=== PATIENT | female | born 1980 | race Caucasian/White ===

== ENCOUNTER 2021-01-01 02:01 | Emergency (ER) | payer OTHER, SELFPAY ==
[2021-01-01 02:01] VITALS: BP 162/93; RESP 18; TEMP 36.2; O2SAT 98
[2021-01-01 02:44] VITALS: BP 162/93; PULSE 82; RESP 18; TEMP 36.2; O2SAT 98
[2021-01-01 03:11] LABS: D Dimer 0.25 mg/L (0.19-0.50); Partial Thromboplastin Time 26.1 SEC (23.90-30.70); Prothrombin Time 10.8 Seconds (9.50-12.10)
[2021-01-01 03:12] LABS: Alanine Aminotransferase 34 U/L (14-59); Albumin Level 3.6 g/dL (3.4-5.0); Alkaline Phosphatase 76 U/L (46-116); Anion Gap 9 mmol/L (8-16); Aspartate Amino Transferase 11 U/L (15-37); Bilirubin,Total 0.3 mg/dL (0.00-1.00); Blood Urea Nitrogen 14 mg/dL (7-18); Calcium 8.6 mg/dL (8.5-10.1); Carbon Dioxide 27 mmol/L (21-32); Chloride 103 mmol/L (98-108); Estimated CRCL calculation 66 ml/min; Estimated Glomerular Filt Rate > 60; Glucose 210 mg/dL (70-99); Osmolality Calculated 294 mOsm/kg (285-295); Potassium 3.6 mmol/L (3.5-5.1); Sodium 139 mmol/L (136-145)
--- NOTE | 2021-01-01 03:25 | ED.LOWEXIN ---
HPI - Extremity Injury (Lower) General Chief Complaint: Extremity Injury, Lower Stated Complaint: Leg Pain Time Seen by Provider: 01/01/21 02:38 Source: patient Mode of arrival: ambulatory Limitations: no limitations History of Present Illness HPI Narrative: She comes in with right knee pain and swelling since Wednesday. She has been unable to sleep secondary to pain. Swelling is primarily in posterior knee. She rates pain as severe, sharp, stabbing, not relieved by home medications. Pain has been ongoing without relief since Wednesday, a 9/10 on pain scale, but she refuses ketorolac and other medications for pain. SHe has had no known injury to the knee, no other associated symptoms. No swelling of the lower leg. Nothing has made this better or worse. Place: home Severity: severe Severity scale (1-10): 9 Relieving factors: nothing Exacerbating factors: movement Other symptoms: none Related Data Home Medications Medication Instructions Recorded Confirmed albuterol sulfate 2 puff INHALATION BID 01/01/21 01/01/21 lisinopril 12.5 mg PO BID 01/01/21 01/01/21 metformin 500 mg PO BID 01/01/21 01/01/21 montelukast 10 mg PO DAILY 01/01/21 01/01/21 Allergies Allergy/AdvReac Type Severity Reaction Status Date / Time Penicillins Allergy Intermediate Verified 11/01/17 09:38 Review of Systems Constitutional: Constitutional: Reports no additional constitutional complaints Eyes: Eyes: Reports no additional eye complaints ENT: Reports system reviewed and no additional complaints, except as documented Cardiovascular: Cardiovascular: Reports no additional cardiovascular complaints Respiratory: Respiratory: Reports no additional respiratory complaints Gastrointestinal: Gastrointestinal: Reports no additional gastrointestinal complaints Genitourinary: Genitourinary: Reports no additional female genitourinary complaints Musculoskeletal: Musculoskeletal: Reports no additional musculoskeletal complaints Integumentary/Breasts: Skin/Breast: Reports system reviewed and no additional complaints, except as docu Neurologic: Reports system reviewed and no additional complaints, except as documented Psychiatric: Psychiatric: Reports no additional psychiatric complaints Endocrine: Endocrine: Reports no additional endocrine complaints Hematologic/Lymphatic: Hematologic/Lymphatic: Reports no additional hematologic/lymphatic complaints Allergic/Immunologic: Allergic/Immunologic: Reports no additional allergic/immunologic complaints PMFSH Past Medical History Medical History (Updated 01/01/21 @ 03:39 by Carlos Gilbert MD) Asthma Diabetes mellitus Hypertension Surgical History Surgical History (Updated 01/01/21 @ 03:39 by Carlos Gilbert MD) No significant past surgical history Family History Family History (Updated 01/01/21 @ 03:40 by Carlos Gilbert MD) Mother Bipolar 1 disorder Social History Social History (Updated 01/01/21 @ 03:41 by Carlos Gilbert MD) Smoking status: Current every day smoker Tobacco type: cigarettes Alcohol intake: never Substance use: never Exam Const: General: no acute distress Orientation/consciousness: patient oriented x3 HENMT: Head: normal to inspection Ears: external ears normal and TM's normal bilaterally General nose exam: Normal external nose present Face and sinus: normal facial exam Mouth: Yes Normal oral and palatal mucosa present Throat: posterior oropharynx normal Eyes: Conjunctivae: conjunctivae normal Neck: Neck: normal visual inspection and no lymphadenopathy Chest: Chest palpation & inspection: normal inspection of the chest Resp: Effort & Inspection: normal respiratory effort Auscultation: clear to auscultation bilaterally Cardio: Rate: regular rate Rhythm: regular rhythm GI: GI Palp: Yes Soft to palpation (nontender) Back/Spine/Pelvis: Back: no CVA tenderness Skin: General skin exam: normal color Neuro: General: patient oriented x3 Ex
[2021-01-01 03:28] VITALS: BP 158/94; PULSE 75; RESP 18; O2SAT 94
--- NOTE | 2021-01-01 04:33 | PC.NURSE ---
pt discharged with discharge packet review at [id number]
== END 2021-01-01 03:30 | disposition home or self-care (01) ==
PROVIDERS: Emergency Provider Emergency Medicine; PCP Family Medicine
DX: M71.21 Synovial cyst of popliteal space [Baker], right knee (principal); E11.9 Type 2 diabetes mellitus without complications; I10 Essential (primary) hypertension
CPT/HCPCS: 36415; 80053; 85380; 85610; 85730; 99282; 99283

== ENCOUNTER 2022-03-04 13:12 | Outpatient (CLI) | payer OTHER, SELFPAY ==
[2022-03-08 17:35] LABS: H pylori Ag Stool Not Detected (Not Detected)
== END 2022-03-04 13:13 | disposition home or self-care (01) ==
LOC: CHSLAB 13:17
PROVIDERS: PCP Family Medicine
DX: A04.8 Other specified bacterial intestinal infections (principal)
CPT/HCPCS: 87338

== ENCOUNTER 2023-05-01 07:15 | Emergency (ER) | payer OTHER, SELFPAY ==
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
--- NOTE | ~2023-05-01 | CT_ITS ---
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 TECHNIQUE: Computed tomography (CT) of the head was performed without intravenous contrast. The dose- length product was 605.33 mGy-cm. Automated exposure control and iterative reconstruction technique w ere employed. COMPARISON: CT dated 06/20/2015 FINDINGS: Normal brain parenchymal volume for age. Normal arce-white differentiation. No acute intrac ranial hemorrhage, infarction, mass or mass effect. No ventriculomegaly or midline shift. Midline sagittal images demonstrate a normal corpus callosum, c raniovertebral junction and sella turcica. Basilar cisterns are patent. Paranasal sinuses are pneumatized. There is a small left mastoid effusion. Right mastoid air cells ar e pneumatized. No depressed skull fractures. IMPRESSION: 1. No acute intracranial abnormality. Reviewed, dictated and finalized at location A.
[2023-05-01 07:15] VITALS: BP 138/104; PULSE 115; RESP 20; TEMP 36.7; O2SAT 94
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
[2023-05-01 08:20] VITALS: BP 137/92; PULSE 92; RESP 20; O2SAT 97
[2023-05-01] MEDS: MORPHINE SULFATE (*CRX) 4 MG/ML INJ IM (08:25)
[2023-05-01 08:50] VITALS: BP 133/88; PULSE 90; RESP 16; O2SAT 96
[2023-05-01 08:53] VITALS: BP 133/88; PULSE 82; RESP 16; O2SAT 94
== END 2023-05-01 08:56 | disposition home or self-care (01) ==
PROVIDERS: Emergency Provider Emergency Medicine; PCP Family Medicine
DX: S63.502A Unspecified sprain of left wrist, initial encounter (principal); H92.02 Otalgia, left ear; I10 Essential (primary) hypertension; E11.9 Type 2 diabetes mellitus without complications; F17.210 Nicotine dependence, cigarettes, uncomplicated; Z79.84 Long term (current) use of oral hypoglycemic drugs; Z79.899 Other long term (current) drug therapy; Y04.2XXA Assault by strike against or bumped into by another person, initial encounter
CPT/HCPCS: 70450; 73090; 73110; 96372; 99284; J2270

== ENCOUNTER 2023-08-23 20:44 | Emergency (ER) | payer BC, SELFPAY ==
--- NOTE | ~2023-08-23 | CT_ITS ---
EXAMINATION: CT abdomen pelvis wo con DATE: 08/23/2023 22:24 INDICATION: Right flank pain TECHNIQUE: Computed tomography (CT) of the abdomen and pelvis was performed without intravenous contr ast. The dose-length product (DLP) was 577.59 mGy-cm. Automated exposure control and iterative recons truction technique were employed. COMPARISON: None FINDINGS: Minimal dependent atelectasis is present in the lung bases. The heart size is normal. The l iver is diffusely low in attenuation when compared with the spleen, consistent with hepatic steatosis . The spleen, pancreas, and adrenal glands are normal. The gallbladder is contracted. The kidneys are unremarkable. No stones are identified in the kidneys, ureters, or bladder. No hydronephrosis or hyd roureter. There are phleboliths of the pelvis. No pathologically enlarged abdominal or pelvic lymph n odes are identified. No free intraperitoneal gas or evidence of bowel obstruction. The appendix is no rmal. There is mild lumbar spondylosis. IMPRESSION: 1. No CT correlate for the patient's symptoms. 2. Diffuse hepatic steatosis. Reviewed, dictated and finalized at location F. R BAG INSPECTOR
[2023-08-23 20:44] VITALS: BP 156/98; PULSE 80; RESP 18; TEMP 36.3; O2SAT 97
--- NOTE | 2023-08-23 20:52 | ED.ABDPAIN ---
HPI - Abdominal Pain General Chief Complaint: Abdominal Pain Stated Complaint: radiating back pain Time Seen by Provider: 08/23/23 20:51 Source: patient Mode of arrival: ambulatory Limitations: no limitations History of Present Illness HPI narrative: 43-year-old female, smoker with hypertension, prediabetes, kidney stones, asthma presents to the ER with a one-week history of -- right flank pain. No dysuria or hematuria. No nausea/ vomiting. No fever. Patient has had an ultrasound 1 year ago which was negative for gallstones. MD elicited complaint: abdominal pain Pertinent past history: kidney stones Onset (ago): day(s) ( Seven days) Pain Consistency: constant Location: R flank Severity: mild Quality: aching Radiation: R flank Migration to: no migration Exacerbating factors: nothing Relieving factors: nothing Associated symptoms: denies other symptoms Related Data Home Medications Medication Instructions Recorded Confirmed albuterol sulfate 90 mcg/actuation 2 puff inhalation BID 01/01/21 08/23/23 aerosol inhaler lisinopril 10 mg tablet 12.5 mg PO BID 01/01/21 08/23/23 metformin 500 mg tablet 500 mg PO BID 01/01/21 08/23/23 montelukast 10 mg tablet 10 mg PO DAILY 01/01/21 08/23/23 budesonide-formoterol HFA 160 1 puff inhalation BID 08/23/23 08/23/23 mcg-4.5 mcg/actuation aerosol inhaler Allergies Allergy/AdvReac Type Severity Reaction Status Date / Time Penicillins Allergy Intermediate Rash Verified 05/06/23 15:04 Review of Systems Review of Systems: All systems reviewed & are unremarkable except as noted in HPI and below Constitutional: Constitutional: Reports as per HPI and Reports no additional constitutional complaints Eyes: Eyes: Reports as per HPI and Reports no additional eye complaints ENT: Reports system reviewed and no additional complaints, except as documented and Reports as per HPI Cardiovascular: Cardiovascular: Reports as per HPI and Reports no additional cardiovascular complaints Respiratory: Respiratory: Reports as per HPI and Reports no additional respiratory complaints Gastrointestinal: Gastrointestinal: Reports as per HPI and Reports no additional gastrointestinal complaints Genitourinary: Genitourinary: Reports no additional female genitourinary complaints, Reports as per HPI and Reports flank pain Musculoskeletal: Musculoskeletal: Reports no additional musculoskeletal complaints and Reports as per HPI Integumentary/Breasts: Skin/Breast: Reports system reviewed and no additional complaints, except as docu Neurologic: Reports system reviewed and no additional complaints, except as documented and Reports as per HPI Psychiatric: Psychiatric: Reports no additional psychiatric complaints and Reports as per HPI Endocrine: Endocrine: Reports no additional endocrine complaints and Reports as per HPI Hematologic/Lymphatic: Hematologic/Lymphatic: Reports no additional hematologic/lymphatic complaints and Reports as per HPI Allergic/Immunologic: Allergic/Immunologic: Reports no additional allergic/immunologic complaints and Reports as per HPI PMFSH Past Medical History Medical History Asthma Diabetes mellitus Hypertension Surgical History Surgical History No significant past surgical history Family History Family History Mother Bipolar 1 disorder Social History Social History Smoking status: Current every day smoker Tobacco type: cigarettes Alcohol intake: never Substance use: never Exam Const: General: healthy appearing and no acute distress Nutritional Appearance: well nourished Orientation/consciousness: patient oriented x3 Limitations: no limitations HENMT: Head: normal to inspection Ears: external ears normal Face/Nose/Sinu
[2023-08-23 21:11] LABS: Basophils Absolute Auto 0.08 K/mm3 (0.00-0.10); Basophils Percent Auto 0.7 % (0.0-1.0); Eosinophils Absolute Auto 0.25 K/mm3 (0.02-0.50); Eosinophils Percent Auto 2.3 % (1.0-6.0); Hematocrit 39.6 % (35.0-49.0); Hemoglobin 13.8 g/dL (12.0-15.0); Immature Granulocyte Absolute 0.07 K/mm3 (0.00-0.00); Immature Granulocyte Percent A 0.6 % (0.0-0.0); Lymphocytes Percent Auto 40.1 % (18.0-42.0); Mean Corpuscular HGB Conc 34.8 g/dL (32.0-36.0); Mean Corpuscular Hemoglobin 31.5 pg (27.0-31.0); Mean Corpuscular Volume 90.4 fL (78.0-102.0); Monocytes Absolute Auto 0.66 K/mm3 (0.10-0.90); Neutrophils Absolute Auto 5.5 K/mm3 (1.7-7.2); Neutrophils Percent Auto 50.3 % (50.0-70.0); Platelet Count Result 217 K/mm3 (150-420); Red Blood Count 4.38 M/mm3 (4.20-5.40); Red Cell Distribution Width 12.1 % (11.6-14.4)
[2023-08-23 21:12] LABS: Appearance Urine Slightly Cloudy (Clear); Bilirubin Urine Negative (Negative); Blood Urine Trace-Intact (Negative); Color Urine Light Yellow (Yellow); Glucose Urine UA 2+ (Negative); Ketones Urine Negative (Negative); Leukocyte Esterase Ur Trace LEU/UL (Negative); Nitrate Urine Positive (Negative); Protein Urine Trace (Negative); Urobilinogen Urine 0.2 mg/dL (0.2-1.0)
[2023-08-23 21:18] LABS: Add Urine Microscopic? YES; Bacteria Urine 3+ /hpf; Squamous Epithelial Cell Urine Rare /hpf (Few)
[2023-08-23] MEDS: ONDANSETRON INJ 4 MG/2 ML VIAL IV PUSH (21:18)
[2023-08-23 21:28] LABS: Alanine Aminotransferase 29 U/L (14-59); Albumin Level 3.7 g/dL (3.4-5.0); Alkaline Phosphatase 72 U/L (46-116); Anion Gap 11 mmol/L (8-16); Aspartate Amino Transferase 12 U/L (15-37); Bilirubin,Total 0.4 mg/dL (0.00-1.00); Blood Urea Nitrogen 12 mg/dL (7-18); Calcium 8.2 mg/dL (8.5-10.1); Carbon Dioxide 26 mmol/L (21-32); Chloride 100 mmol/L (98-108); Estimated CRCL calculation 73 ml/min; Estimated Glomerular Filt Rate > 60; Glucose 221 mg/dL (70-99); Lipase 47 U/L (16-77); Osmolality Calculated 290 mOsm/kg (285-295); Potassium 3.6 mmol/L (3.5-5.1); Sodium 137 mmol/L (136-145); Total Protein 6.8 g/dL (6.4-8.2)
[2023-08-23 21:35] LABS: Lactic Acid Reflex 1.1 mmol/L (0.4-2.0)
[2023-08-23] MEDS: KETOROLAC 30 MG/ML VIAL (*BKC) IV PUSH (21:51)
[2023-08-23] MEDS: LACTATED RINGERS 500 ML 999 ML IV CONT (21:51)
[2023-08-23 21:55] LABS: Pregnancy On Board Control Positive; Urine Pregnancy Test Negative
[2023-08-23] MEDS: CIPROFLOXACIN 250 MG TABLET PO (22:46)
[2023-08-23 22:52] VITALS: BP 139/84; PULSE 82; RESP 20; TEMP 36.7; O2SAT 98
--- NOTE | 2023-08-28 15:38 | PC.NURSE ---
FINAL URINE CULTURE REPORT; KLEBSIELLA PNEUMONIAE; PATIENT DISCHARGED HOME ON CIPROFLOXACIN, CULTURE IS SUSCEPTIBLE. NO FURTHER ACTION OR TREATMENT NEEDED.
--- NOTE | 2023-08-30 14:05 | PC.NURSE ---
FINAL URINE CULTURE RESULT: GREATER THAN 100,000 CFU/ML OF KEBSIELLA PNEUMONIAE. PER C&S AND DR NELSON, NO FURTHER ACTION NEEDED.
== END 2023-08-23 22:58 | disposition home or self-care (01) ==
PROVIDERS: Emergency Provider Internal Medicine Critical Care Medicine; PCP Family Medicine
DX: E11.65 Type 2 diabetes mellitus with hyperglycemia (principal); N30.00 Acute cystitis without hematuria; I10 Essential (primary) hypertension; F17.210 Nicotine dependence, cigarettes, uncomplicated; Z79.899 Other long term (current) drug therapy; Z79.84 Long term (current) use of oral hypoglycemic drugs
CPT/HCPCS: 36415; 74176; 80053; 81001; 81025; 83605; 83690; 85025; 87077; 87086; 87088; 87186; 96374; 96375; 99284; A9270; J1885; J2405; J7120

== ENCOUNTER 2023-10-19 17:04 | Outpatient (RCR) | payer BC, SELFPAY ==
--- NOTE | 2023-10-19 17:31 | OPREHPOC ---
Outpatient Therapy Plan of Care This is a Multidisciplinary Plan of Care that may contain components documented by all disciplines (PT, OT, and ST.) PT Problem 1 PT Problem #1 Knowledge Deficit PT Goal 1 Goal 1. independent and compliant with HEP Target Visit 4 PT Problem 2 PT Problem #2 Pain PT Goal 1 Goal 1. decrease pain at worst to 3/10 in the lower back to return to daily activities and work Target Visit 8 PT Problem 3 PT Problem #3 Impaired Strength PT Goal 1 Goal 1. improve bilateral hip strength to 4+/5 or better overall 2. improve core strength to 3+/5 or better Target Visit 8 PT Problem 4 PT Problem #4 Impaired Range of Motion PT Goal 1 Goal 1. improve active lumbar flexion to the ankles 2. improve active lumbar extension to 20 degrees 3. improve active bilateral lumbar side bending to 40 degrees all pain free active rom of the lumbar spine Target Visit 8 PT Problem 5 PT Problem #5 Impaired Functional Mobil PT Goal 1 Goal 1. improve bilateral hamstrings flexibility to 20 degrees or less per the 90/90 test 2. oswestry to display 20% or less functional deficits 3. patient to tolerate full week of working full days without needs days off due to pain 4. patient to ambulate for 30 minutes without rest to return to health goals/program Target Visit 8
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
--- NOTE | 2023-10-26 17:30 | PCPTNOTE ---
pt no show. attempted contact with no answer.
--- NOTE | 2024-04-25 10:59 | PCPTNOTE ---
Pt did not return after her eval on 10/19/23. She is discharged. -Meenu Chapman, PT
== END 2023-10-19 20:00 | disposition home or self-care (01) ==
LOC: CHSPT 17:04
PROVIDERS: PCP Family Medicine; Visit Provider Family Medicine
DX: M47.817 Spondylosis without myelopathy or radiculopathy, lumbosacral region (principal)
CPT/HCPCS: 97014; 97110; 97161; G0283

== ENCOUNTER 2024-04-13 12:05 | Outpatient (CLI) | payer BC, SELFPAY ==
[2024-04-14 09:28] LABS: Alanine Aminotransferase 31 U/L (6-35); Albumin Level 4.1 g/dL (3.5-5.1); Alkaline Phosphatase 69 U/L (38-126); Anion Gap 13 mmol/L (4-12); Aspartate Amino Transferase 25 U/L (14-36); Bilirubin,Total 0.4 mg/dL (0.2-1.3); Blood Urea Nitrogen 16 mg/dL (7-17); Calcium 9.4 mg/dL (8.4-10.2); Carbon Dioxide 22 mmol/L (22-30); Chloride 103 mmol/L (98-107); Cholesterol 176 mg/dL (0-200); Estimated Glomerular Filt Rate > 60; Glucose 209 mg/dL (65-110); HDL Direct 35 mg/dL; LDL Cholesterol Calculated 58 mg/dL (<130); Osmolality Calculated 293 mOsm/kg (285-295); Potassium 3.9 mmol/L (3.4-5.0); Sodium 138 mmol/L (137-145); Triglycerides 415 mg/dL (<150)
[2024-04-14 12:35] LABS: Hemoglobin A1C 6.9 % (<5.7)
== END 2024-04-13 12:06 | disposition home or self-care (01) ==
LOC: CHSLAB 12:12
PROVIDERS: PCP Family Medicine
DX: E11.65 Type 2 diabetes mellitus with hyperglycemia (principal)
CPT/HCPCS: 36415; 80053; 80061; 83036

== ENCOUNTER 2024-09-17 14:43 | Emergency (ER) | payer BC, SELFPAY ==
[2024-09-17] VITALS (11 sets, daily range): BP systolic 101–113; BP diastolic 63–70; PULSE 81–95; RESP 15–22; TEMP 36.4–36.9; O2SAT 94–100
--- NOTE | ~2024-09-17 | XR_ITS ---
CHEST RADIOGRAPH CLINICAL HISTORY: dyspnea, chest pain x1 week . COMPARISON: None available TECHNIQUE: Single portable view of the chest. FINDINGS The cardiomediastinal silhouette is unremarkable. The lungs are clear. Visualized osseous structures and soft tissues are unremarkable. IMPRESSION: No focal infiltrate or effusion. Reviewed, dictated and finalized at location A. [facility]
--- NOTE | 2024-09-17 14:44 | ECG_ITS ---
Test Date: 2024-09-17 14:49:07 Measurements Intervals [place] Rate: 89 P: 34 ID: [id number] QRS: 71 QRSD: 86 T: 28 QT: 325 QTc: 397 Interpretive Statements SINUS RHYTHM NONSPECIFIC ST-T WAVE ABNORMALITY- INFERIOR LEADS BASELINE ARTIFACT- I, II, AVR, AVL BORDERLINE ECG No previous ECG available for comparison Electronically Signed On 09-18-2024 06:29:00 HOTBED TRANSFER OPERATOR by Abhijit Pan D.O.
--- OUTSIDE RECORDS SUMMARY | 2024-09-17 14:46 | XMS_ITS ---
Author Organization Unknown Address [address] [place] [phone] Phone Care Team Providers Care Textile Engineer Name Role Phone YOANA CARLOS Attending Unavailable NO PCP Primary Unavailable Immunization Immunization Date Status Additional Notes Code Code System DTP 10/28/1979 Completed CVX DTP 12/03/1980 Completed CVX DTP 04/10/1981 Completed CVX DTP 06/11/1982 Completed CVX OPV 10/28/1979 Completed 02 CVX OPV 12/03/1980 Completed CVX OPV 12/11/1981 Completed CVX OPV 04/01/1983 Completed 02 CVX MMR 10/28/1979 Completed 03 CVX MMR 03/14/1993 Completed 03 CVX Td (adult), 2 Lf tetanus toxoid, preservative free, adsorbed 03/14/1993 Completed 09 CVX COVID-19, mRNA, LNP-S, PF, 1 00 mcg/0.5mL dose or 50 mcg/0.25mL dose 04/23/2021 Completed 207 CVX Results MS GASTRIC EMPTYING - Comple myriam: 07/27/2024 12:24 LOINC: EXAM DESCRIPTION: MS GASTRIC EMPTYING RADIOPHARMACEUTICAL: 1 mCi Tc-99m sulfur colloid incorporated into eggs p.o. REASON FOR STUDY: Abdominal bloating with nausea for 6 months. TECHNIQUE: After oral ingestion of the radiolabeled meal, sequential anterior and posterior abdominal images were obtained. COMPARISON: None FINDINGS: At 60 minutes, the residual activity is 93% (normal: 30-90%). At 120 minutes, the residual activity is 76% (normal: less than 60%). At 180 minutes, the residual activity is 35% (normal: less than 30%). At 240 minutes, the residual activity is 2% (normal: less than 10%). IMPRESSION: ? ? Normal gastric emptying. THIS IS AN ELECTRONICALLY VERIFIED FINAL REPORT 07/27/2024 3:59 PM - Electronically signed by Wilbert Alvarez M.D. LB: CARLYLE Report ID: [id number] Reading Location: [place] [address] Social History Type Status Start Date End Date Code Code Syst em Sex Female Hospital Discharge Instructions Should you have any questions prior to discharge, please contact a member of your healthcare team. If you have left the hospital and have any questions, please contact your primary care physician. Reason For Referral No Data Found Plan of Treatment NM Gastric Emptying (64484) 07/27/2024 Encounters Encounter Diagnosis Start Date Code Code Sys tem Abdominal distension, gaseous 07/27/2024 [id number] SNOMED-CT Personal Care Team Section Performer Name Performer Role Active Date Inactive Da te Imaging Narrative Notes
--- OUTSIDE RECORDS SUMMARY | 2024-09-17 14:46 | XMS_ITS | Data Portability ---
Author Organization [facility], [address] [place] [address] [place] ([place]) Address [address] [place] [address] Care Team Providers Care Sofa Back Upholsterer Name Role Phone TAMMY SHEPHERD Primary Care Provider JAN LEES Middle Card Tender Assessment Encounter Date Assessment Date Assessment LastModified by Organization Details LastModified Time 06/23/2024 06/23/2024 Ms. Oconnell is a 44-year-old female with a history of diabetes on Ozempic, asthma, hypertension, and GERD who presents with complaints of chronic intermittent right upper quadrant abdominal pain associated with foul-smelling burps, bloating and nausea vomiting. She was initially seen in 2021 and underwent an EGD and colonoscopy after which she had been lost to follow-up. EGD had shown grade a esophagitis, erosive gastritis and erosive duodenitis. Colonoscopy in 2021 had shown a few benign polyps and normal random biopsies. An ultrasound had shown no stones in the gallbladder. CT abdomen had shown diverticulosis with normal gallbladder and some splenic lesions. Reports a family history of aunt with colon cancer. It is likely that some of her symptoms are from being on Ozempic. SIBO is also a possibility. -Provided info on low FODMAP diet to help with bloating -Will order a gastric emptying study to rule out gastroparesis -Future option will be a trial of antibiotic like Augmentin for possible SIBO [email or web address] Not available 07/03/2024 11:42:00 Plan of Treatment Reminders Order Date Submit Date Provider Last Modified By Organization Details Last Modified Time Details Appointments None record ed. Lab None record ed. Referral None record ed. Procedures None record ed. Surgeries None record ed. Imaging None record ed. Medication Orders None record ed. Patient TargetsNo targets recorded. Patient InstructionsNo instructions recorded. Reason for Referral None Reported. Problems Name Problem SNOMED Code Status Onset Date Resolution Date Notes Provider Name and Address Organization Details Recorded Time Tenderness of right upper quadrant of abdomen 875080160 Active 2023 Daniella ramos [facility] 4 16:30:44 Right upper quadrant pain 566607271 Active 2023 Daniella ramos [facility] 4 16:31:01 Gastrointestin al symptom 066783134 Active 2023 Daniella ramos [facility] 4 16:31:26 Abdominal bloating 861494799 Active 2023 Alisia Vigil [facility] 4 16:31:44 Bilious vomiting 05476304 Active 2023 Jan Lees MD [address] [place] [address], [phone], [facility] 4 11:39:03 Burping 821621906 Active 2023 Jan Lees MD [address] [place] [address], [phone], [facility] 4 11:39:10 Small bowel bacterial overgrowth syndrome 197975863 Active 2024 Cyn Garrett [facility] 5 13:20:35 Problem Notes None recorded. Medical Equipment None Reported. Allergies Allergen ID Allergen Name Allergen Category Reaction Reaction Severity Criticality Documentation Date Start Date Code Code System Note Provider Name and Address Organization Details Recorded Time 7067618 grass pollen environme nt,medica tion other Not available Not available 06/01/2024 20234 UNK sneez ing Not Available Not Available Not Available 5401551 starch food,medi cation other Not available Not available 06/01/2024 79772 RxNorm sneez ing Not Available Not Available Not Available 900265 Product containin g penicilli n and antibioti c (product) medicatio n anaphylax is Not available Not available 09/06/20232021 39187 05 SNOMED Not Available Not Available Not Available 490021 Augmentin medicatio n nausea Not available Not available 09/06/20232021 77841 2 RxNorm Not Available Not Available Not Available Medications Name Sig Start Date Stop Date Status Note LastModified by Organization Details LastModified Time cyclobenzap rine 10 mg tablet TAKE 1 TABLET BY MOUTH 3 TIMES A DAY NEEDED FOR PAIN 06/23 completed Not Available Not Available Not Available atorvastati n 20 mg tablet Take 1 tablet every day by oral route. active Not Available Not Available No t Available albuterol sulfate 2.5 mg/3 mL (0.083 %) solution for nebulizatio n Inhale 3 mL 3 times a day by nebulizat ion route. active Not Available Not Available No t Available lisinopril 20 mg-hydrochl orothiazide 12.5 mg tablet 1 (ONE) TABLET DAILY FOR BLOOD PRESSURE active Not Available Not Available No t Available azithromyci n 250 mg tablet TAKE 2 TABLETS BY MOUTH TODAY, THEN TAKE 1 TABLET DAILY FOR 4 DAYS DIRECTED 06/23 completed Not Available Not Available Not Available clarithromy mak 500 mg tablet TAKE 1 TABLET BY MOUTH TWICE A DAY 06/23 completed Not Available Not Available Not Available prednisone 20 mg tablet TAKE 2 TABLETS BY MOUTH EVERY DAY FOR DIFFICULT Y BREATHING active Not Available Not Available No t Available metronidazo le 500 mg tablet Take 1 tablet 3 times a day by oral route as directed for 7 days. 2024 active Not Available Not Available Not Avai lable ciprofloxac in 250 mg tablet TAKE 1 TABLET BY MOUTH TWICE A DAY 06/23 completed Not Available Not Available Not Available omeprazole 40 mg capsule,del ayed release Take 1 capsule twice a day by oral route. active Not Available Not Available No t Available ondansetron 8 mg disintegrat ing tablet 1 (ONE) TABLET EVERY 8 HOURS NEEDED FOR VOMITING 06/23 completed Not Available Not Available Not Available ketorolac 10 mg tablet TAKE 1 TABLET BY MOUTH THREE TIMES A DAY 06/23 completed Not Available Not Available Not Available baclofen 10 mg tablet TAKE 1 TABLET BY MOUTH THREE TIMES A DAY 06/23 completed Not Available Not Available Not Available Cipro 500 mg tablet Take 1 tablet twice a day by oral route as directed for 7 days. 2024 active Not Available Not Available Not Avai lable omeprazole 20 mg capsule,del ayed release TAKE 1 CAPSULE BY MOUTH 2 TIMES DAILY 06/23 completed Not Available Not Available Not Available montelukast 10 mg tablet Take 1 tablet every day by oral route. active Not Available Not Available No t Available ergocalcife rol (vitamin D2) 1,250 mcg (50,000 unit) capsule TAKE 1 CAPSULE BY MOUTH ONE TIME PER WEEK 06/23 completed Not Available Not Available Not Available albuterol sulfate HFA 90 mcg/actuati on aerosol inhaler INHALE 1-2 PUFFS BY MOUTH FOUR TIMES DAILY, NEEDED ASTHMA EXACERBAT ION active Not Available Not Available No t Available metformin ER 500 mg tablet,exte nded release 24 hr Take 2 tablets every day by oral route. active Not Available Not Available No t Available BD Ultra-Fine Mini Pen Needle 31 gauge x /16 USE WEEKLY WITH OZEMPIC active Not Available Not Available No t Available lisinopril- hydrochloro thiazide 06/23 completed Not Available Not Available Not Available Symbicort 160 mcg-4.5 mcg/actuati on HFA aerosol inhaler Inhale 2 puffs twice a day by inhalatio n route. active Not Available Not Available No t Available Trulicity 0.75 mg/0.5 mL subcutaneou s pen injector INJECT 0.5ML (1 PEN) UNDER THE SKIN WEEKLY 06/23 completed Not Available Not Available Not Available albuterol sulfate 90 mcg/actuati on breath activated powder inhaler Inhale 2 puffs every 4 hours by inhalatio n route. active Not Available Not Available No t Available FreeStyle John 2 Sensor kit 1 (ONE) KIT EVERY 14 DAYS active Not Available Not Available No t Available Ozempic 1 mg/dose (4 mg/3 mL) subcutaneou s pen injector Inject by subcutane ous route. active Not Available Not Available No t Available FreeStyle Jonh 3 Sensor device APPLY 1 SENSOR EVERY 14 DAYS active Not Available Not Available No t Available Ozempic 0.25 mg or 0.5 mg (2 mg/3 mL) subcutaneou s pen injector INJECT 0.25 MG WEEKLY 06/23 completed Not Available Not Available Not Available Vitals Date Recorded Body height Body mass index (BMI) Body weight Oxygen saturation Oxygen saturation in Arterial blood by Pulse oximetry Heart rate Systolic blood pressure Diastolic blood pressure Provider Name and Address Organization Details Last Updated DateTime 4 152.4 cm 32.8 kg/m2 64293.2 4 g 94 % 94 % 81 /min 112 mm[Hg] 78 mm[Hg] Cyn Garrett [facility] 4 11:34:43 Social History Question Answer Notes LastModified by Organizat ion Details LastModified Time Tobacco Smoking Status Former Smoker Cyn Garrett [facility] 06/23/2024 11:38:36 What Is Your Level Of Alcohol Consumption? None [email or web address] Information not available 06/23/2024 Sex: Unknown Functional Status None recorded. Mental Status None recorded. Family History Relationship Description Onset Age of this Age Resolved Age Notes LastModified by Organization Details LastModified Time Mother Malignant tumor of breast [email or web address] Not available 06/23 11:39:45 Maternal Aunt Malignant tumor of colon [email or web address] Not available 06/23 11:39:56 Medical History Condition Response Autoimmune disease N Bleeding Disorder N Anemia N Colon Cancer N Colon Polyps N Chronic Ulcerative Colitis N Cancer N Crohn's Disease N Gynecological HistoryNo gynecological history recorded. Obstetrics History GPAL:G 0 P 0 0 0 0 Past Encounters Encounter ID Performer Location Encounter Start Date Encounter Closed Date Diagnosis/Indication Diagnosis SNOMED-CT Code Diagnosis ICD10 Code Diagnosis Note [id number] Jan Lees MD [address] [facility] ([place]) [address] [facility] [place] [address] 06/23/2024 11:21:50 06/23/2024 13:28:31 Right upper quadrant pain 881092442 R10.11 Bilious vomiting 6618426 2 R11.14 Burping 473952572 R14.2 Health Concerns Section Related Observation LastModified by Organization Detai ls LastModified Time None Recorded Concern Status LastModified by Organization Details LastModified Time None Recorded Advance Directives Directive None Recorded Payers Encounter Date Sequence Insurance Name Policy Number Policy Chavez Covered Member ID Chavez Member ID Guarantor Name 06/23/2024 1 [place] [id number] Yoselin Oconnell [id number] Yoselin Oconnell Notes Date Note Type Note Provider Name and Address Organization Details Recorded Time 06/23/2024 text/html Ms. Oconnell presents with complaints of right upper quadrant abdominal pain associated with bloating and nausea, vomiting. She has foul-smelling burps. Denies any heartburn. She is on omeprazole. She is also on Ozempic. She reports 1 bowel movement per day which is occasionally loose. Denies any blood in the stools or black stools. Jan Lees MD [address] [place] [address], [phone], [facility] 07/03/2024 11:42:22 OBGyn Episode No OBEpisode recorded.
--- OUTSIDE RECORDS SUMMARY | 2024-09-17 14:46 | XMS_ITS | Encounter Summary ---
Author Organization [facility] Address [address] [place] [address] Care Team Providers Care Ground Crewman Aircraft Support Name Role Phone Chris Jiang MD Primary Care Provider [phone] Encounter Details Date Type Department Care Team (Late st Contact Info) Description 01/14/2019 Abstract SFL CONVERSION [address] [place] [address] , Generic Conversion, Social History Tobacco Use Types Packs/Day Years Used Date Smoking Tobacco: Never Assessed Comments Unknown Sex and Gender Information Value Date Recorded Sex Assigned at Not on file Legal Sex Female 7:59 AM CDT Gender Identity Not on file Sexual Orientation Not on file documented as of this encounter Plan of Treatment Not on file documented as of this encounter Visit Diagnoses Not on filedocumented in this encounter Care Teams Ground Crewman Aircraft Support Relationship Specialty Start Date End Date Chris Jiang MD [address] [place] [phone] PCP - General FAMILY PRACTICE 08/14/20 documented as of this encounter
--- OUTSIDE RECORDS SUMMARY | 2024-09-17 14:46 | XMS_ITS | Clinical Summary ---
Author Organization [facility] Address [address] [place] [address] Care Team Providers Care Demonstrator Sales Name Role Phone Chris Jiang MD Primary Care Provider Allergies Active Allergy Reactions Criticality Noted Date Comments Amoxicillin-Pot Clavulanate Nausea Only 021 Grass Sneezing 08/15/2020 Penicillins Throat swelling 06/25/2016 Propylene Glycol Sneezing 01/03/2021 Medications albuterol (2.5 MG/3ML) 0.083% nebulizer solution Inhale 1 mL into the lungs every 4 (four) hours as needed. 05/20/2016 Active albuterol sulfate HFA 108 (90 Base) MCG/ACT inhaler Inhale 1 puff into the lungs as needed. 08/14/2020 Active lisinopril-hydr oCHLOROthiazide 20-12.5 MG tablet Take 1 tablet by mouth 2 (two) times a day. 08/14/2020 Active montelukast 10 MG tablet Take 1 tablet (10 mg total) by mouth daily. 08/14/2020 Active acetaminophen 500 MG tablet Take 1 tablet (500 mg total) by mouth every 6 (six) hours as needed for Pain. Active atorvastatin (LIPITOR) 20 MG tablet Take 1 tablet (20 mg total) by mouth daily. 02/29/2024 Active budesonide-form oterol (SYMBICORT) 160-4.5 MCG/ACT inhaler Inhale 1 puff into the lungs 2 (two) times daily. 07/28/2023 Active omeprazole (PRILOSEC) 40 MG capsule Take 1 capsule (40 mg total) by mouth 2 (two) times daily. 04/12/2024 Active metFORMIN ER (GLUCOPHAGE-XR) 500 MG 24 hr tablet Take 2 tablets (1,000 mg total) by mouth 2 (two) times daily. 03/01/2024 Active OZEMPIC 1 mg/dose injection (PEN) Inject 1 mg into the skin once a week. 05/08/2024 Active Active Problems Problem Noted Date Diagnosed Date Trigger ring finger of right hand 04/24/2024 Abdominal pain 11/05/2021 Pseudogout of right knee 01/09/2021 Effusion of knee joint right 01/09/2021 Closed nondisplaced fracture of distal phalanx of left great toe with routine healing, subsequent encounter 08/15/2020 Family History Medical History Relation Comments No Known Problems Brother Hypertension Father No Known Problems Maternal Grandfather Diabetes Maternal Grandmother No Known Problems Mother No Known Problems Paternal Grandfather Diabetes Paternal Grandmother No Known Problems Sister Relation Status Comments Brother Alive Father Maternal Grandfather Maternal Grandmother Mother Alive Paternal Grandfather Paternal Grandmother Sister Alive Social History Tobacco Use Types Packs/Day Years Used Date Smoking Tobacco: Every Day Cigarettes 0.3 26 Smokeless Tobacco: Never Tobacco Cessation:Ready to Q uit: No; Counseling Given: No Alcohol Use Standard Drinks/Week Comments Never 0 (1 standard drink = 0.6 oz pur e alcohol) AUDIT-C Answer Date Recorded Q1: How often do you have a drink containing alc ohol? Never 09/05/2020 Average Number of Drinks Not on file 021 Frequency of Binge Drinking Not on file 08/10 Comments No Sex and Gender Information Value Date Recorded Sex Assigned at Not on file Legal Sex Female 7:59 AM CDT Gender Identity Not on file Sexual Orientation Not on file Last Filed Vital Signs Vital Sign Reading Time Taken Comments Blood Pressure 106/80 05/31/2024 10:34 AM CDT Pulse 86 05/31/2024 10:34 AM CDT Temperature 36.2 C (97.2 F) 04/11/2024 11:34 AM CDT Respiratory Rate 14 05/31/2024 10:34 AM CDT Oxygen Saturation 98% 05/31/2024 10:34 AM CDT Inhaled Oxygen Concentration - - Weight 75.8 kg (167 lb) 05/31/2024 10:34 AM CDT Height 149.9 cm (4' 11 ) 05/31/2024 10:34 AM CDT Body Mass Index 33.73 05/31/2024 10:34 AM CDT Plan of Treatment Health Maintenance Due Date Last Done Comments Cervical Cancer Screening Pap Smear (Age 30 to 64) Every 3 Years 1978 Colorectal Cancer Screening Colonoscopy (10 Years) 1978 Annual Physical 1981 Pneumococcal Vaccine: Pediatrics (0 to 5 Years) and At-Risk Patients (6 to 64 Years) (1 of 2 - PCV) 01/14/1984 PHQ-2 (Physician [employer]) 1990 Hepatitis C 01/14/1996 DTaP, Tdap and Td Vaccines (1 - Tdap) 1997 06/11/1982, 04/10/1981, 12/03/1980, Additional history exists Hepatitis B Vaccines (1 of 3 - 19+ 3-dose series) 1997 Cervical Cancer Screening Pap with HPV Testing (Age 30 to 64) Every 5 Years 01/14/2008 Cervical Cancer Screening with HPV 01/14/2008 Mammogram Screening 2018 COVID-19 Vaccine ( season) 2024 Influenza Adult (#1) 2024 PHQ-2 (Physician [employer]) 08/09/2024 Meningococcal B Vaccine Aged Out No l onger eligible based on patient's age to complete this topic Meningococcal Vaccine Aged Out No kenneth leatha eligible based on patient's age to complete this topic RSV Immunizations Under 20 Months Aged Out No longer eligible based on patient's age to complete this topic Goals Goal Patient Goal Type Associated Problems Recent Progress Patient-Stated? Author Safety Patient/family will have appropriate support at home upon discharge General No Corrine Bradshaw, WOOD BOATBUILDER Insurance Advance Directives * Full Code (Latest Code Status on File) Date Activated Date Inactivated Comments 11/05/2021 1:02 PM 11/06/2021 5:13 PM Care Teams Demonstrator Sales Relationship Specialty Start Date End Date Chris Jiang MD [address] [facility] [place] [id number] PCP - General FAMILY PRACTICE 08/14/20
--- NOTE | 2024-09-17 14:56 | ED_ITS ---
HPI - General Adult General Chief complaint: Shortness of Breath/Dyspnea Stated complaint: chest pain, shortness of breath History of Present Illness HPI narrative: Yoselin is a 44F with a PMH of asthma, DMII, and HTN that presented to the ED with chest pain. She started having chest pain and tightness as well as wheezing and was started on steroids 6 days ago. Despite this she is having worsening chest pain and dyspnea. She took an albuterol breathing treatment just before coming to the ED. She has had lightheadedness, nausea but no vomiting or syncope. CP is not worse with exertion and does not radiate. Related Data Home Medications ?Medication ?Instructions ?Recorded ?Confirmed ?Last Taken ?Type albuterol sulfate 90 mcg/actuation 2 puff inhalation BID 01/01/21 08/23/23 Unknown History aerosol inhaler lisinopril 10 mg tablet 12.5 mg PO BID 01/01/21 08/23/23 Unknown History metformin 500 mg tablet 500 mg PO BID 01/01/21 08/23/23 Unknown History montelukast 10 mg tablet 10 mg PO DAILY 01/01/21 08/23/23 Unknown History budesonide-formoterol HFA 160 1 puff inhalation BID 08/23/23 08/23/23 Unknown History mcg-4.5 mcg/actuation aerosol inhaler Allergies Allergy/AdvReac Type Severity Reaction Status Date / Time Penicillins Allergy Intermediate Rash Verified 09/17/24 14:54 Review of Systems 2 Review of Systems: All systems reviewed & are unremarkable except as noted in HPI and below PMFSH Past Medical History Medical History Asthma Hypertension Diabetes mellitus Surgical History Surgical History No significant past surgical history Family History Family History Mother Bipolar 1 disorder Social History Social History Smoking status: Current every day smoker Tobacco type: cigarettes Alcohol intake: never Substance use: never Exam 2 Const: General: cooperative, healthy appearing, comfortable, no acute distress, well developed, alert, awake and Physically active O rientation/consciousness: oriented to person, oriented to place and oriented to time HENMT: Head: normal to inspection, normocephalic and atraumatic Ears: h earing grossly normal bilaterally and external ears normal Face/Nose/Sinus: N ormal external nose present Eyes: General: appearance normal, both eyes and all related structures P eriorbital: periorbital findings normal Sclera: sclerae normal Pupils: E qual, round and reactive pupils present Neck: Neck: normal visual inspection Chest: Chest palpation & inspection: normal inspection of the chest Resp: Effort & Inspection: normal respiratory effort, able to speak in complete sentences and no respiratory distress Other: diffuse wheezing Cardio: Jugular venous distension: no JVD Rate: regular rate Rhythm: r egular rhythm GI: Inspection: normal to inspection GI Palp: Yes Soft to palpation A uscultation: normal bowel sounds Skin: General skin exam: normal color and no rashes or lesions noted Neuro: General: oriented to person, oriented to place and oriented to time Cranial nerves: Yes Equal, round and reactive pupils present Extrem: General: normal to inspection Course Course Emergency Course: EKG showed NSR with a rate of 89, no ectopy, and non-specific T wave activity CHEST RADIOGRAPH CLINICAL HISTORY: dyspnea, chest pain x1 week . COMPARISON: None available TECHNIQUE: Single portable view of the chest. FINDINGS The cardiomediastinal silhouette is unremarkable. The lungs are clear. Visualized osseous structures and soft tissues are unremarkable. IMPRESSION: No focal infiltrate or effusion. Labs largely unremarkable. After her breathing treatment her chest pain resolved and she was breathing well but did have some palpitations from the treatment. Vital Signs Vital signs: Vital Signs Temperature 98.5 F 09/17/24 14:45 Pulse Rate 91 09/17/24 14:45 Respiratory Rate 22 H 09/17/24 14:45 Blood Pressure 102/65 09/17/24 14:45 Pulse Oximetry 95 09/17/24 14:45 Oxygen Delivery Room Air 09/17/24 14:45 Temperature 98.5 F 09/17/24 14:45 Pulse Rate 94 09/17/24 15:01 Respiratory Rate 18 09/17/24 15:01 Blood Pressure 101/63 09/17/24 15:01 Pulse Oximetry 97 09/17/24 15:01 Oxygen Delivery Room Air 09/17/24 14:45 Medical Decision Making Vital Signs Vital Signs: Vital Signs Temperature 98.5 F 09/17/24 14:45 Pulse Rate 91 09/17/24 14:45 Respiratory Rate 22 H 09/17/24 14:45 Blood Pressure 102/65 09/17/24 14:45 Pulse Oximetry 95 09/17/24 14:45 Oxygen Delivery Room Air 09/17/24 14:45 Temperature 98.5 F 09/17/24 14:45 Pulse Rate 94 09/17/24 15:01 Respiratory Rate 18 09/17/24 15:01 Blood Pressure 101/63 09/17/24 15:01 Pulse Oximetry 97 09/17/24 15:01 Oxygen Delivery Room Air 09/17/24 14:45 Lab Data 09/17/24 15:42 09/17/24 15:42 Labs: Lab Results 09/17/24 Range/Units 15:42 WBC 13.0 H (4.8-10.8) K/mm3 RBC 4.57 (4.20-5.40) M/mm3 Hgb 13.8 (12.0-15.0) g/dL Hct 42.1 (35.0-49.0) % MCV 92.1 (78.0-102.0) fL MCH 30.2 (27.0-31.0) pg MCHC 32.8 (32-36) g/dL RDW 12.4 (11.6-14.4) % Plt Count 237 (150-420) K/mm3 MPV 10.0 (9.2-11.8) fl Immature Gran % (Auto) 1.7 H (0.0-0.0) % Neut % (Auto) 57.1 (50.0-70.0) % Lymph % (Auto) 30.1 (18.0-42.0) % [place] % (Auto) 9.8 (2.0-11.0) % Eos % (Auto) 0.8 L (1.0-6.0) % Baso % (Auto) 0.5 (0.0-1.0) % Lymph # (Auto) 3.91 (1.10-4.50) K/mm3 [place] # (Auto) 1.28 H (0.10-0.90) K/mm3 Eos # (Auto) 0.11 (0.02-0.50) K/mm3 Baso # (Auto) 0.07 (0.00-0.10) K/mm3 Abs Immat Gran (auto) 0.22 H (0.00-0.00) K/mm3 Absolute Neuts (auto) 7.42 H (1.70-7.20) K/mm3 Absolute Nucleated RBC 0.00 (0.00-0.00) K/mm3 Nucleated RBC % 0.0 (0-0.0) % Sodium 132 L (136-145) mmol/L Potassium 3.4 L (3.5-5.1) mmol/L Chloride 96 L (98-108) mmol/L Carbon Dioxide 26 (21-32) mmol/L Anion Gap 10 (4-12) mmol/L BUN 11 (7-18) mg/dL Creatinine 1.10 H (0.55-1.02) mg/dL Estim Creat Clear Calc Not Reportable Estimated GFR 53 L (59 - ) Glucose 307 H (70-99) mg/dL Calculated Osmolality 285 (285-295) mOsm/kg Calcium 8.5 (8.5-10.1) mg/dL Total Bilirubin 0.4 (0.00-1.00) mg/dL AST 13 L (15-37) U/L ALT 31 (14-59) U/L Alkaline Phosphatase 88 (46-116) U/L Troponin I < 4.0 (0.00-60.4) ng/L NT-Pro-B Natriuret Pep 73 (0-125) pg/mL Total Protein 7.1 (6.4-8.2) g/dL Albumin 3.5 (3.4-5.0) g/dL Lipase 80 H (16-77) U/L Discharge Plan Discharge Clinical Impression: Asthma exacerbation Patient Disposition: Home, Self-Care Condition: Stable Instructions: Asthma (ED) Patient Language: Bahamian Prescriptions: New ipratropium-albuterol 0.5 mg-3 mg(2.5 mg base)/3 mL solution for nebulization 3 ml inhalation QID PRN (Reason: shortness of breath or wheezing) Qty: 90 0RF prednisone 50 mg tablet 50 mg PO DAILY Qty: 5 0RF levalbuterol tartrate 45 mcg/actuation HFA aerosol inhaler 2 inh inhalation Q6H Qty: 15 0RF No Action metformin 500 mg tablet 500 mg PO BID lisinopril 10 mg tablet 12.5 mg PO BID montelukast 10 mg tablet 10 mg PO DAILY albuterol sulfate 90 mcg/actuation HFA aerosol inhaler 2 puff INHALATION BID budesonide-formoterol 160-4.5 mcg/actuation HFA aerosol inhaler 1 puff INHALATION BID ciprofloxacin HCl [Cipro] 250 mg tablet 250 mg PO Q12H Qty: 5 0RF Follow-up/Referrals: UNKNOWN,DOCTOR [Non-Staff] -
--- OUTSIDE RECORDS SUMMARY | 2024-09-17 15:03 | XMS_ITS ---
Author Organization Unknown Address [address] [place] [phone] Phone Care Team Providers Care [employer] Officer Name Role Phone YOANA CARLOS Attending Unavailable [...] mcg/0.25mL dose 04/23/2021 Completed 207 CVX Results [place] GASTRIC EMPTYING - Comple myriam: 07/27/2024 12:24 LOINC: EXAM DESCRIPTION: [place] GASTRIC EMPTYING RADIOPHARMACEUTICAL: 1 mCi Tc-99m sulfur [...] Wilbert Alvarez M.D. LB: CARLYLE Report ID: [id number] Reading Location: [place] [address] Social History Type Status Start Date End Date Code Code Syst em Sex Female Hospital Discharge Instructions Should you have any questions prior to discharge, please contact a member of your healthcare team. If you have left the hospital and have any questions, please contact your primary care physician. Reason For Referral No Data Found Plan of Treatment [place] Gastric Emptying (93123) 07/27/2024 Encounters Encounter Diagnosis Start Date Code Code Sys tem Abdominal distension, gaseous 07/27/2024 [id number] SNOMED-CT Personal Care Team Section Performer Name Performer Role Active Date Inactive Da te Imaging Narrative Notes
[2024-09-17] MEDS: IPRATROPIUM 0.5 MG/ALBUTEROL SULFATE 2.5 MG AMPUL.NEB 3 ML INHALATION (15:13)
[2024-09-17] MEDS: predniSONE 40 MG, predniSONE 10 MG 50 MG PO (15:14)
[2024-09-17] MEDS: MAGNESIUM SULF 2 GM/WATER 50ML 2 GM/50 ML BAG IVPB (15:19)
[2024-09-17 15:48] LABS: Basophils Absolute Auto 0.07 K/mm3 (0.00-0.10); Basophils Percent Auto 0.5 % (0.0-1.0); Eosinophils Absolute Auto 0.11 K/mm3 (0.02-0.50); Eosinophils Percent Auto 0.8 % (1.0-6.0); Hematocrit 42.1 % (35.0-49.0); Hemoglobin 13.8 g/dL (12.0-15.0); Immature Granulocyte Absolute 0.22 K/mm3 (0.00-0.00); Immature Granulocyte Percent A 1.7 % (0.0-0.0); Lymphocytes Absolute Auto 3.91 K/mm3 (1.10-4.50); Lymphocytes Percent Auto 30.1 % (18.0-42.0); Mean Corpuscular HGB Conc 32.8 g/dL (32-36); Mean Corpuscular Hemoglobin 30.2 pg (27.0-31.0); Mean Corpuscular Volume 92.1 fL (78.0-102.0); Monocytes Absolute Auto 1.28 K/mm3 (0.10-0.90); Monocytes Percent Auto 9.8 % (2.0-11.0); Neutrophils Absolute Auto 7.42 K/mm3 (1.70-7.20); Neutrophils Percent Auto 57.1 % (50.0-70.0); Platelet Count Result 237 K/mm3 (150-420); Red Blood Count 4.57 M/mm3 (4.20-5.40); Red Cell Distribution Width 12.4 % (11.6-14.4)
[2024-09-17 16:08] LABS: Alanine Aminotransferase 31 U/L (14-59); Albumin Level 3.5 g/dL (3.4-5.0); Alkaline Phosphatase 88 U/L (46-116); Anion Gap 10 mmol/L (4-12); Aspartate Amino Transferase 13 U/L (15-37); Bilirubin,Total 0.4 mg/dL (0.00-1.00); Blood Urea Nitrogen 11 mg/dL (7-18); Calcium 8.5 mg/dL (8.5-10.1); Carbon Dioxide 26 mmol/L (21-32); Chloride 96 mmol/L (98-108); Estimated Glomerular Filt Rate 53; Glucose 307 mg/dL (70-99); Lipase 80 U/L (16-77); NT Pro B Type Natriuretic Pept 73 pg/mL (0-125); Osmolality Calculated 285 mOsm/kg (285-295); Potassium 3.4 mmol/L (3.5-5.1); Sodium 132 mmol/L (136-145); Total Protein 7.1 g/dL (6.4-8.2)
[2024-09-17 16:10] LABS: Troponin I < 4.0 ng/L (0.00-60.4)
[2024-09-17 16:38] LABS: Add Urine Microscopic? NO; Appearance Urine Clear (Clear); Bilirubin Urine Negative (Negative); Blood Urine Negative (Negative); Color Urine Light Yellow (Yellow); Glucose Urine UA 3+ (Negative); Ketones Urine Negative (Negative); Leukocyte Esterase Ur Negative LEU/UL (Negative); Nitrate Urine Negative (Negative); Protein Urine Negative (Negative); Specific Grav Ur <= 1.005 (1.010-1.020); Urobilinogen Urine 0.2 mg/dL (0.2-1.0)
== END 2024-09-17 16:28 | disposition home or self-care (01) ==
PROVIDERS: Emergency Provider Family Medicine; PCP Family Medicine
DX: M71.21 Synovial cyst of popliteal space [Baker], right knee (principal); I10 Essential (primary) hypertension; E11.9 Type 2 diabetes mellitus without complications; J45.909 Unspecified asthma, uncomplicated; F17.210 Nicotine dependence, cigarettes, uncomplicated; Z79.84 Long term (current) use of oral hypoglycemic drugs; Z79.51 Long term (current) use of inhaled steroids
CPT/HCPCS: 36415; 71045; 80053; 81003; 83690; 83880; 84484; 85025; 93005; 96365; 96366; 99284; J3475; J7512